=== PATIENT | female | born 1945 | race Caucasian/White ===

== ENCOUNTER 2021-07-11 07:42 | Outpatient (REF) | payer OTHER, SELFPAY | END 2021-07-11 07:43 | disposition home or self-care (01) | LOC: HO.HOSX 07:42 | PROVIDERS: Visit Provider Physician Assistant | DX: Z13.89 Encounter for screening for other disorder (principal) ==

== ENCOUNTER 2023-05-06 11:39 | Day surgery (SDC) | payer MEDICARE, SELFPAY ==
[2023-05-04 07:36] VITALS: BMI 39.7
--- NOTE | 2023-05-05 13:45 | HO.ANESPROP2 ---
Documented by User: Yael Willard NP 05/05/23 13:48 HPI - Anesthesia Eval Consult details Narrative: 77yo F for Right Medial Rectus Eye Muscle Recession Medically [facility] Past Medical History Medical History Abnormal gait Acoustic neuroma Anxiety HTN (hypertension) Hypothyroidism Impacted cerumen Incontinent of feces Knee pain Meniere disease Pilonidal cyst Polymyalgia rheumatica Post-traumatic headache Sick sinus syndrome Urinary incontinence, mixed Surgical History Surgical History (Updated 05/04/23 @ 07:57 by Cat Dinh RN) H/O arthroscopy of knee H/O hernia repair History of bunionectomy History of gastric bypass Hx of bilateral oophorectomy Hx of section Hx of cholecystectomy Hx of hysterectomy Hx of shoulder surgery Hx of total knee replacement S/P insertion of sacral nerve stimulator Social History Social History Use of substances other than those prescribed or required for medical reasons: No Are you DNR?: No Advance Directives: No Advance Directives Information Provided: Yes Meds Allergies Allergy/AdvReac Type Severity Reaction Status Date / Time Beta-Blockers Allergy Unknown Verified 05/04/23 07:43 (Beta-Adrenergic Bloc caffeine [From Cafergot] Allergy Anaphylaxis Verified 05/04/23 07:43 citalopram [From Celexa] Allergy Unknown Verified 05/04/23 07:43 codeine Allergy Nausea Verified 05/04/23 07:43 diltiazem Allergy Unknown Verified 05/04/23 07:43 ergotamine [From Cafergot] Allergy Anaphylaxis Verified 05/04/23 07:43 gabapentin Allergy Irritable Verified 05/04/23 07:43 hydromorphone [From Dilaudid] Allergy Anxiety Verified 05/04/23 07:43 meperidine [From Demerol] Allergy Nausea Verified 05/04/23 07:43 Penicillins [PCN] Allergy Rash Verified 05/04/23 07:43 sertraline Allergy Irritable Verified 05/04/23 07:43 sulfamethoxazole Allergy Rash Verified 05/04/23 07:38 [From Bactrim] trimethoprim [From Bactrim] Allergy Rash Verified 05/04/23 07:38 Home Medications Medication Instructions Recorded Confirmed Last Taken Type amlodipine 10 mg tablet 10 mg PO DAILY 05/04/23 05/04/23 05/06/23 History ascorbic acid (vitamin C) 500 mg 500 mg PO DAILY 05/04/23 05/04/23 Unknown History chewable tablet (Vitamin C) cholecalciferol (vitamin D3) 50 150 mcg PO DAILY 05/04/23 05/04/23 Unknown History mcg (2,000 unit) capsule (Vitamin D3) cyanocobalamin (vitamin B-12) 500 500 mcg PO DAILY 05/04/23 05/04/23 Unknown History mcg tablet (Vitamin B-12) duloxetine 20 mg capsule,delayed 20 mg PO BID 05/04/23 05/04/23 05/06/23 History release ferrous gluconate 324 mg (38 mg 324 mg PO DAILY 05/04/23 05/04/23 Unknown History iron) tablet fluticasone propionate 50 1 spray intranasal DAILY 05/04/23 05/04/23 Unknown History mcg/actuation nasal spray,suspension hydroxyzine HCl 25 mg tablet 25 mg PO TID PRN Itching 05/04/23 05/04/23 Unknown History irbesartan 300 mg tablet 150 mg PO DAILY 05/04/23 05/04/23 Unknown History levothyroxine 100 mcg capsule 100 mcg PO DAILY 05/04/23 05/04/23 05/06/23 History levothyroxine 88 mcg tablet 88 mcg PO DAILY 05/04/23 05/04/23 05/06/23 History loperamide 2 mg tablet 2 mg PO TID PRN Diarrhea 05/04/23 05/04/23 Unknown History pravastatin 40 mg tablet 40 mg PO DAILY 05/04/23 05/04/23 Unknown History prednisone 5 mg tablet 5 mg PO DIRECTED 05/04/23 05/04/23 Unknown History pregabalin 50 mg capsule 50 mg PO BID 05/04/23 05/04/23 05/06/23 History ropinirole 0.5 mg tablet 0.75 mg PO BEDTIME 05/04/23 05/04/23 Unknown History trazodone 50 mg tablet 150 mg PO DAILY 05/04/23 05/04/23 Unknown History zinc 50 mg tablet 50 mg PO DAILY 05/04/23 05/04/23 Unknown History Exam Exam Date and Time: May 05, 2023 1345 Height,Weight and Vital Signs: Height 5 ft 3 in Weight 101.605 kg Assessment and Plan Assessment Anesthesia Assessment: Chart Reviewed Documented by User: Lissette Santiago MD 05/06/23 12:46 PMF[facility] Past Medical History Medical History Abnormal gait Acoustic neuroma Anxiety HTN (hypertension) Hypothyroidism Impacted cerumen Incontinent of feces Knee pain Meniere disease Pilonidal cyst Polymyalgia rheumatica Post-traumatic headache Sick sinus syndrome Urinary incontinence, mixed Surgical History Surgical History (Updated 05/04/23 @ 07:57 by Cat Dinh RN) H/O arthroscopy of knee H/O hernia repair History of bunionectomy History of gastric bypass Hx of bilateral oophorectomy Hx of section Hx of cholecystectomy Hx of hysterectomy Hx of shoulder surgery Hx of total knee replacement S/P insertion of sacral nerve stimulator History of Problems with Anesthesia: No Social History Social History Use of substances other than those prescribed or required for medical reasons: No Are you DNR?: No Advance Directives: No Advance Directives Information Provided: Yes Meds Allergies Allergy/AdvReac Type Severity Reaction Status Date / Time Beta-Blockers Allergy Unknown Verified 05/04/23 07:43 (Beta-Adrenergic Bloc caffeine [From Cafergot] Allergy Anaphylaxis Verified 05/04/23 07:43 citalopram [From Celexa] Allergy Unknown Verified 05/04/23 07:43 codeine Allergy Nausea Verified 05/04/23 07:43 diltiazem Allergy Unknown Verified 05/04/23 07:43 ergotamine [From Cafergot] Allergy Anaphylaxis Verified 05/04/23 07:43 gabapentin Allergy Irritable Verified 05/04/23 07:43 hydromorphone [From Dilaudid] Allergy Anxiety Verified 05/04/23 07:43 meperidine [From Demerol] Allergy Nausea Verified 05/04/23 07:43 Penicillins [PCN] Allergy Rash Verified 05/04/23 07:43 sertraline Allergy Irritable Verified 05/04/23 07:43 sulfamethoxazole Allergy Rash Verified 05/04/23 07:38 [From Bactrim] trimethoprim [From Bactrim] Allergy Rash Verified 05/04/23 07:38 Home Medications Medication Instructions Recorded Confirmed Last Taken Type amlodipine 10 mg tablet 10 mg PO DAILY 05/04/23 05/04/23 05/06/23 History ascorbic acid (vitamin C) 500 mg 500 mg PO DAILY 05/04/23 05/04/23 Unknown History chewable tablet (Vitamin C) cholecalciferol (vitamin D3) 50 150 mcg PO DAILY 05/04/23 05/04/23 Unknown History mcg (2,000 unit) capsule (Vitamin D3) cyanocobalamin (vitamin B-12) 500 500 mcg PO DAILY 05/04/23 05/04/23 Unknown History mcg tablet (Vitamin B-12) duloxetine 20 mg capsule,delayed 20 mg PO BID 05/04/23 05/04/23 05/06/23 History release ferrous gluconate 324 mg (38 mg 324 mg PO DAILY 05/04/23 05/04/23 Unknown History iron) tablet fluticasone propionate 50 1 spray intranasal DAILY 05/04/23 05/04/23 Unknown History mcg/actuation nasal spray,suspension hydroxyzine HCl 25 mg tablet 25 mg PO TID PRN Itching 05/04/23 05/04/23 Unknown History irbesartan 300 mg tablet 150 mg PO DAILY 05/04/23 05/04/23 Unknown History levothyroxine 100 mcg capsule 100 mcg PO DAILY 05/04/23 05/04/23 05/06/23 History levothyroxine 88 mcg tablet 88 mcg PO DAILY 05/04/23 05/04/23 05/06/23 History loperamide 2 mg tablet 2 mg PO TID PRN Diarrhea 05/04/23 05/04/23 Unknown History pravastatin 40 mg tablet 40 mg PO DAILY 05/04/23 05/04/23 Unknown History prednisone 5 mg tablet 5 mg PO DIRECTED 05/04/23 05/04/23 Unknown History pregabalin 50 mg capsule 50 mg PO BID 05/04/23 05/04/23 05/06/23 History ropinirole 0.5 mg tablet 0.75 mg PO BEDTIME 05/04/23 05/04/23 Unknown History trazodone 50 mg tablet 150 mg PO DAILY 05/04/23 05/04/23 Unknown History zinc 50 mg tablet 50 mg PO DAILY 05/04/23 05/04/23 Unknown History Exam Airway Mallampati Class: III TM Dist: >3cm Neck ROM: Limited Loose/Missing/Broken Teeth: No Heart: RRR Lungs: CTA Assessment and Plan Assessment Anesthesia Assessment: Anesthesia Plan Discussed Final Anesthetic Review History of Problems with Anesthesia: No NPO: Yes ASA Class: II Final Preanesthetic Review: Meds/Allgs Chart Reviewed, Consent Obtained/Reviewed and Anes Risks/Benef Reviewed Patient Risk: Low Procedure Risk: Low Anesthetic Plan Anesthetic Plan: GA Disposition: Standard PACU
[2023-05-06] VITALS (7 sets, daily range): BP systolic 127–157; BP diastolic 62–81; PULSE 63–68; RESP 16–18; TEMP 36.4–36.6; O2SAT 98–100; BMI 37.2
[2023-05-06] MEDS: Lactated Ringers 1,000 ML 100 ML IVCONT (12:31)
--- NOTE | 2023-05-06 12:47 | HO.ANESPROP2 ---
[facility] Past Medical History Medical History Abnormal gait Acoustic neuroma Anxiety HTN (hypertension) Hypothyroidism Impacted cerumen Incontinent of feces Knee pain Meniere disease Pilonidal cyst Polymyalgia rheumatica Post-traumatic headache Sick sinus syndrome Urinary incontinence, mixed Surgical History Surgical History H/O arthroscopy of knee H/O hernia repair History of bunionectomy History of gastric bypass Hx of bilateral oophorectomy Hx of section Hx of cholecystectomy Hx of hysterectomy Hx of shoulder surgery Hx of total knee replacement S/P insertion of sacral nerve stimulator History of Problems with Anesthesia: No Social History Social History Use of substances other than those prescribed or required for medical reasons: No Are you DNR?: No Advance Directives: No Advance Directives Information Provided: Yes Meds Allergies Allergy/AdvReac Type Severity Reaction Status Date / Time Beta-Blockers Allergy Unknown Verified 05/04/23 07:43 (Beta-Adrenergic Bloc caffeine [From Cafergot] Allergy Anaphylaxis Verified 05/04/23 07:43 citalopram [From Celexa] Allergy Unknown Verified 05/04/23 07:43 codeine Allergy Nausea Verified 05/04/23 07:43 diltiazem Allergy Unknown Verified 05/04/23 07:43 ergotamine [From Cafergot] Allergy Anaphylaxis Verified 05/04/23 07:43 gabapentin Allergy Irritable Verified 05/04/23 07:43 hydromorphone [From Dilaudid] Allergy Anxiety Verified 05/04/23 07:43 meperidine [From Demerol] Allergy Nausea Verified 05/04/23 07:43 Penicillins [PCN] Allergy Rash Verified 05/04/23 07:43 sertraline Allergy Irritable Verified 05/04/23 07:43 sulfamethoxazole Allergy Rash Verified 05/04/23 07:38 [From Bactrim] trimethoprim [From Bactrim] Allergy Rash Verified 05/04/23 07:38 Active Medications: Current Medications Lactated Ringer's (Lr) 1,000 mls @ 100 mls/hr IVCONT .Q10H COBY Last Admin: 05/06/23 12:31 Dose: 100 mls/hr Home Medications Medication Instructions Recorded Confirmed Last Taken Type amlodipine 10 mg tablet 10 mg PO DAILY 05/04/23 05/04/23 05/06/23 History ascorbic acid (vitamin C) 500 mg 500 mg PO DAILY 05/04/23 05/04/23 Unknown History chewable tablet (Vitamin C) cholecalciferol (vitamin D3) 50 150 mcg PO DAILY 05/04/23 05/04/23 Unknown History mcg (2,000 unit) capsule (Vitamin D3) cyanocobalamin (vitamin B-12) 500 500 mcg PO DAILY 05/04/23 05/04/23 Unknown History mcg tablet (Vitamin B-12) duloxetine 20 mg capsule,delayed 20 mg PO BID 05/04/23 05/04/23 05/06/23 History release ferrous gluconate 324 mg (38 mg 324 mg PO DAILY 05/04/23 05/04/23 Unknown History iron) tablet fluticasone propionate 50 1 spray intranasal DAILY 05/04/23 05/04/23 Unknown History mcg/actuation nasal spray,suspension hydroxyzine HCl 25 mg tablet 25 mg PO TID PRN Itching 05/04/23 05/04/23 Unknown History irbesartan 300 mg tablet 150 mg PO DAILY 05/04/23 05/04/23 Unknown History levothyroxine 100 mcg capsule 100 mcg PO DAILY 05/04/23 05/04/23 05/06/23 History levothyroxine 88 mcg tablet 88 mcg PO DAILY 05/04/23 05/04/23 05/06/23 History loperamide 2 mg tablet 2 mg PO TID PRN Diarrhea 05/04/23 05/04/23 Unknown History pravastatin 40 mg tablet 40 mg PO DAILY 05/04/23 05/04/23 Unknown History prednisone 5 mg tablet 5 mg PO DIRECTED 05/04/23 05/04/23 Unknown History pregabalin 50 mg capsule 50 mg PO BID 05/04/23 05/04/23 05/06/23 History ropinirole 0.5 mg tablet 0.75 mg PO BEDTIME 05/04/23 05/04/23 Unknown History trazodone 50 mg tablet 150 mg PO DAILY 05/04/23 05/04/23 Unknown History zinc 50 mg tablet 50 mg PO DAILY 05/04/23 05/04/23 Unknown History Exam Exam Date and Time: May 06, 2023 1247 Height,Weight and Vital Signs: Height 5 ft 3 in Weight 95.254 kg Last Vital Signs Temp 97.5 F 05/06/23 12:04 Pulse 64 05/06/23 12:04 Resp 18 05/06/23 12:04 BP 157/81 H 05/06/23 12:04 Pulse Ox 100 05/06/23 12:04 O2 Del Method Room Air 05/06/23 12:04 Assessment and Plan Final Anesthetic Review History of Problems with Anesthesia: No
--- NOTE | 2023-05-06 13:39 | HO.OPHTHAL ---
Ophthalmology Operative Note Date of Service: 05/06/23 Narrative: Diagnosis esotropia. Procedure recession of right medial rectus muscle [address] Naylor. Anesthesia general. Complications none. The patient was brought to the operative room placed under general anesthesia. The right eye was prepped and draped in the usual sterile ophthalmic fashion. A lid speculum was placed in the right eye and a peritomy was created around the medial rectus muscle. The muscle was disinserted the globe and reattached to a position 4 mm behind the original insertion. Conjunctiva was closed with interrupted Vicryl sutures. The patient was then awoken from general anesthesia and discharged to postoperative recovery in good condition.
== END 2023-05-06 14:57 | disposition home or self-care (01) ==
PROVIDERS: PCP Family Medicine; Visit Provider Ophthalmology
PROC: (CPT 67311; principal; 2023-05-06 13:50)
DX: H51.8 Other specified disorders of binocular movement (principal); H81.09 Meniere's disease, unspecified ear; R26.9 Unspecified abnormalities of gait and mobility; I10 Essential (primary) hypertension; D33.3 Benign neoplasm of cranial nerves; M35.3 Polymyalgia rheumatica; I49.5 Sick sinus syndrome; Z79.51 Long term (current) use of inhaled steroids; Z79.52 Long term (current) use of systemic steroids; Z79.899 Other long term (current) drug therapy; Z88.0 Allergy status to penicillin; Z88.8 Allergy status to other drugs, medicaments and biological substances; Z98.890 Other specified postprocedural states
CPT/HCPCS: 67311; J0131; J1100; J1885; J2405; J3010